=== PATIENT | male | born 1995 | race Caucasian/White ===

== ENCOUNTER 2020-01-25 23:39 | Emergency (ER) | payer OTHER, SELFPAY ==
[2020-01-25 23:42] VITALS: BP 138/90; PULSE 79; RESP 18; TEMP 36.6; O2SAT 95
[2020-01-26] MEDS: TETANUS,DIPHTHERIA,AC PERTUSSIS ADULT (0.5 ML) BOOSTRIX IM (00:34)
--- NOTE | 2020-01-26 00:34 | ED.WOUNDLAC ---
HPI - Wound/Laceration General Chief Complaint: Wound/Laceration Stated Complaint: 'cut off finger tip' Time Seen by Provider: 01/25/20 23:54 Source: patient Mode of arrival: ambulatory Limitations: no limitations History of Present Illness HPI narrative: This patient is a 24 year old male left hand dominant who presents for an evaluation of laceration to his right 3rd finger tip. He states he was cooking when he accidentally cut his finger with kitchen knife. This occurred at 4pm today. He states he held pressure on it and applied a bandage but he noticed around 9 pm it was still bleeding. He is unsure of his tetanus. Related Data Allergies Allergy/AdvReac Type Severity Reaction Status Date / Time No Known Allergies Verified 02/04/10 07:54 Review of Systems Review of Systems: All systems reviewed & are unremarkable except as noted in HPI and below PMFSH Past Medical History Medical History (Updated 01/26/20 @ 01:24 by Lula Tillman MD) Patient denies medical problems Surgical History Surgical History (Updated 01/26/20 @ 00:36 by Lula Tillman MD) No pertinent past surgical history Social History Social History (Updated 01/26/20 @ 00:36 by Lula Tillman MD) Smoking status: Never smoker Alcohol intake: never Substance use: never Exam Const: General: no acute distress and alert Orientation/consciousness: patient oriented x3 Resp: Effort & Inspection: normal respiratory effort Neuro: General: patient oriented x3 and moves all extremities Extrem: Other: FROM right 3rd finger with skin avulsion to tip Psych: Mental Status: mental status grossly normal Affect: normal affect Course Reevaluation(s) Reevaluation #1: Patient wound was cleaned. I dressed with xeroform , gauze and wrapped with coban. His bleeding is controlled after apply ing pressure for 20 minutes. I removed dressing and rewrapped and there was no bleeding. PAtient was given dressing change instructions. Date: 01/26/20 Time: : Vital Signs Vital signs: Vital Signs Temperature 97.9 F 01/25/20 23:42 Pulse Rate 79 01/25/20 23:42 Respiratory Rate 18 01/25/20 23:42 Blood Pressure 138/90 01/25/20 23:42 Pulse Oximetry 95 01/25/20 23:42 Temperature 98.3 F 01/26/20 01:25 Pulse Rate 74 01/26/20 01:25 Respiratory Rate 19 01/26/20 01:25 Blood Pressure 115/64 01/26/20 01:25 Pulse Oximetry 100 01/26/20 01:25 Discharge Plan Discharge Clinical Impression: Avulsion of skin of finger Qualifiers: Encounter type: initial encounter Qualified Code(s): S61.209A - Unspecified open wound of unspecified finger without damage to nail, initial encounter Patient Disposition: Home, Self-Care Condition: Stable Instructions: Antibiotic Form, Skin Avulsion (ED) Additional Instructions: Today you were evaluation for a wound. You can clean wound daily with soap and water . Change dressing daily as shown and instructed. Watch for signs of infection. Follow-up/Referrals: Noam Blackman MD [Physician] - Silas,SONJA Chowdary [Primary Care Provider] - Discharge Date/Time: 01/26/20 01:27
[2020-01-26 01:25] VITALS: BP 115/64; PULSE 74; RESP 19; TEMP 36.8; O2SAT 100
== END 2020-01-26 01:27 | disposition home or self-care (01) ==
PROVIDERS: Emergency Provider General Practice; PCP Physician Assistant
DX: S61.212A Laceration without foreign body of right middle finger without damage to nail, initial encounter (principal); W26.0XXA Contact with knife, initial encounter; Z23 Encounter for immunization; Y93.G1 Activity, food preparation and clean up
CPT/HCPCS: 90471; 90715; 99282